=== PATIENT | male | born 1995 | race Caucasian/White ===

== ENCOUNTER 2022-09-18 16:53 | Inpatient (IN) | payer OTHER ==
[2022-09-18 17:36] VITALS: BMI 21.4
[2022-09-18] MEDS ORDERED: ONDANSETRON *ODT* 4 MG TABLET SL PRN (20:43)
[2022-09-18] MEDS ORDERED: POLYETHYLENE GLYCOL (HEALTHYLAX) 3350 17 GM PACKET PO PRN (20:43)
[2022-09-18] MEDS ORDERED: P-EPHED 60MG/TRIPROLIDI 2.5MG TABLET PO PRN (20:43)
[2022-09-18] MEDS ORDERED: NALOXONE HCL 0.4 MG/ML VIAL IM PRN (20:43)
[2022-09-18] MEDS ORDERED: LOPERAMIDE HCL 2 MG CAPSULE PO PRN (20:43)
[2022-09-18] MEDS ORDERED: NALOXONE HCL (KLOXXADO) 8 MG SPRAY NS PRN (20:43)
[2022-09-18] MEDS ORDERED: BENZONATATE 200 MG CAPSULE PO PRN (20:43)
[2022-09-18] MEDS ORDERED: DICYCLOMINE HCL 10 MG CAPSULE PO PRN (20:43)
[2022-09-18] MEDS ORDERED: NICOTINE POLACRILEX 2 MG GUM BUC PRN (20:43)
[2022-09-18] MEDS ORDERED: MAG HYDROX/AL HYDROX/SIMETH 30 ML UNIT-DOSE CUP PO PRN (20:43)
[2022-09-18] MEDS ORDERED: MAGNESIUM HYDROX 2400MG/30ML ORAL SUSPENSION 30 ML CUP PO PRN (20:43)
[2022-09-18] MEDS ORDERED: IBUPROFEN 400 MG TABLET (FP) PO PRN (20:43)
[2022-09-18] MEDS ORDERED: IBUPROFEN 600 MG TABLET (FP) PO PRN (20:43)
[2022-09-18] MEDS ORDERED: BISMUTH SUBSALICYLATE 524 MG/30 ML PO PRN (20:43)
[2022-09-18] MEDS ORDERED: ACETAMINOPHEN 325 MG TABLET (FP) PO PRN (20:43)
[2022-09-18] MEDS ORDERED: BENZOCAINE/MENTHOL (CHLORASEPTIC ) LOZENGE MM PRN (20:43)
[2022-09-18] MEDS ORDERED: guaiFENesin 600 MG TABLET.ER (FP) PO PRN (20:43)
[2022-09-18] MEDS ORDERED: MELATONIN 5 MG TABLETS PO SCH (22:00)
[2022-09-18] MEDS ORDERED: THIAMINE HCL 100 MG TABLET (FP) PO SCH (22:00)
[2022-09-18] MEDS ORDERED: DOCUSATE SODIUM 100 MG CAPSULE (FP) PO SCH (22:00)
[2022-09-18] MEDS: hydrOXYzine PAMOATE 25 MG CAPSULE (FP) PO PRN (23:02)
[2022-09-18] MEDS: METHOCARBAMOL 500 MG TABLET PO PRN (23:02)
[2022-09-19] MEDS ORDERED: cloNIDine HCL 0.1 MG TABLET PO PRN (09:54)
[2022-09-19] MEDS ORDERED: methaDONE HCL 10 MG TABLET (FOR DETOX USE ONLY) PO ONE (09:54)
[2022-09-19] MEDS ORDERED: chlordiazePOXIDE HCL 25 MG CAPSULE PO PRN (09:54)
[2022-09-19] MEDS ORDERED: PRENATAL VITAMINS W/ FOLIC ACID TABLET (FP) PO SCH (10:00)
[2022-09-19 10:03] VITALS: BP 114/59; PULSE 74; RESP 17; TEMP 98.6
[2022-09-19] MEDS: chlordiazePOXIDE HCL 25 MG CAPSULE PO SCH ×2 (10:07→10:44)
[2022-09-19] MEDS: METHOCARBAMOL 500 MG TABLET PO PRN (10:07)
[2022-09-19] MEDS: hydrOXYzine PAMOATE 25 MG CAPSULE (FP) PO PRN (10:07)
[2022-09-19 11:53] LABS: HEMATOCRIT 43.7 % (35.4-49); HEMOGLOBIN 14.4 GM/dL (11.7-16.9); MCH 29.5 pg (25.7-33.7); MCHC 32.9 g/dl (32.0-35.9); MEAN CELL VOLUME 89.8 fl (80-96); MEAN PLT VOLUME 11.2 fl (7.5-11.1); PLATELET COUNT 253 10^3/uL (134-434); RBC 4.87 M/mm3 (4.00-5.60); RDW 14.1 % (11.9-15.9); WHITE BLOOD COUNT 4.3 K/mm3 (4.0-10.0)
[2022-09-19 12:23] LABS: POTASSIUM 5.2 mmol/L (3.5-5.1)
[2022-09-19 12:27] LABS: ALBUMIN 3.7 g/dl (3.4-5.0)
[2022-09-19 12:28] LABS: CALCIUM 9.5 mg/dL (8.5-10.1)
[2022-09-19 12:30] LABS: CREATININE 0.9 mg/dL (0.55-1.3)
[2022-09-19 12:31] LABS: BILIRUBIN,TOTAL 0.2 mg/dL (0.2-1); TOT PROT 7.3 g/dl (6.4-8.2)
[2022-09-19] MEDS ORDERED: QUEtiapine FUMARATE 100 MG TABLET (FP) PO SCH (22:00)
[2022-09-21] MEDS ORDERED: chlordiazePOXIDE HCL 25 MG CAPSULE PO SCH (05:00)
[2022-09-21] MEDS ORDERED: methaDONE HCL 10 MG TABLET (FOR DETOX USE ONLY) PO ONE (10:00)
[2022-09-22] MEDS ORDERED: chlordiazePOXIDE HCL 10 MG CAPSULE PO PRN
[2022-09-22] MEDS ORDERED: chlordiazePOXIDE HCL 10 MG CAPSULE PO SCH (05:00)
[2022-09-23] MEDS ORDERED: chlordiazePOXIDE HCL 10 MG CAPSULE PO SCH (05:00)
[2022-09-23] MEDS ORDERED: methaDONE HCL 10 MG TABLET (FOR DETOX USE ONLY) PO ONE (10:00)
[2022-09-24] MEDS ORDERED: chlordiazePOXIDE HCL 10 MG CAPSULE PO ONE (05:00)
== END 2022-09-19 11:45 | disposition left against medical advice (07) | DRG 770 ==
LOC: YASAS 16:53 → Y3N 22:09 → UNDOADMIN 22:09 → UNDODISIN 09-19 11:45
PROVIDERS: ADMIT Allergy & Immunology; ATTEND Surgery
PROC: HZ2ZZZZ Detoxification Services for Substance Abuse Treatment (ICD-10-PCS; principal; 2022-09-18)
DX: F11.23 Opioid dependence with withdrawal (principal); F10.230 Alcohol dependence with withdrawal, uncomplicated; F14.10 Cocaine abuse, uncomplicated; F17.210 Nicotine dependence, cigarettes, uncomplicated; F19.282 Other psychoactive substance dependence with psychoactive substance-induced sleep disorder
CPT/HCPCS: 36415; 80053; 85027; 86780; 87635; 87811